=== PATIENT | female | born 1955 | race African-American/Black ===

== ENCOUNTER 2023-01-20 08:43 | Inpatient (IN) | payer MEDICARE, MEDICAID, SELFPAY ==
[2023-01-20] VITALS (9 sets, daily range): BP systolic 141–187; BP diastolic 79–117; PULSE 103–130; RESP 18–24; TEMP 36.1–36.8; O2SAT 2–99; BMI 34.6; BMI 34.5
--- NOTE | ~2023-01-20 | XR_ITS ---
EXAMINATION: XR CHEST 10:35 AM CLINICAL INFORMATION: Shortness of breath COMPARISON: None available. TECHNIQUE: Frontal AP portable view of the chest was obtained. FINDINGS: There are patchy airspace opacities in the mid and lower lung zones bilaterally, right greater than left. There may be a small right pleural effusion. The cardiac silhouette is magnified by the AP position. XR/XR chest 1V IMPRESSION: Bilateral airspace opacities in the mid and lower lung zones compatible with pneumonia. Viral pneumonia including COVID could have this appearance, as could multifocal bronchopneumonia. Close follow-up imaging is recommended to confirm clearing.
--- NOTE | 2023-01-20 09:05 | ECG_ITS ---
Test Reason : sob Blood Pressure : / mmHG Vent. Rate : 121 BPM Atrial Rate : 121 BPM P-R Int : 160 ms QRS Dur : 088 ms QT Int : 324 ms P-R-T Axes : 047 017 090 degrees QTc Int : 460 ms Sinus tachycardia Intra-ventricular conduction delay with occasional Premature ventricular complexes Nonspecific T wave abnormality Abnormal ECG No previous ECGs available Referred By: Generic ED Physician Electronically Signed By:JOSSELYN GARCIA MD
[2023-01-20 09:09] LABS: MANUAL DIFF FLAG NO
[2023-01-20 09:12] LABS: Basophils Percent Auto 0.3 % (0-2); Eosinophils Percent Auto 0.5 % (0-4); Hematocrit 41.9 % (37.0-47.0); Hemoglobin 13.1 g/dl (12.0-16.0); Imm Gran Abs Auto 0.05 X10*3/uL (0.00-0.03); Imm Gran Pct Auto 0.6 % (0.0-0.4); Lymphocytes Absolute Auto 1.7 X10*3/uL (1.2-4.9); Lymphocytes Percent Auto 21.6 % (20-40); Mean Corpuscular HGB Conc 31.3 g/dl (31.0-35.0); Mean Corpuscular Hemoglobin 29.4 pg (27.0-33.0); Mean Corpuscular Volume 94.2 fL (80.0-98.0); Mean Platelet Volume 11.3 fL (9.4-12.3); Monocytes Absolute Auto 0.4 X10*3/uL (0.1-1.2); Monocytes Percent Auto 5.2 % (2-11); Neutrophils Absolute Auto 5.7 x10*3/uL (2.0-8.3); Neutrophils Percent Auto 71.8 % (45-73); Platelet Count 241 X10*3/uL (160-400); Red Blood Count 4.45 X10*6/uL (4.20-5.50); Red Cell Distribution Width 13.6 % (11.0-16.0); White Blood Count 7.9 X10*3/uL (4.8-10.8)
[2023-01-20 09:28] LABS: Alanine Aminotransferase 100 U/L (0-31); Albumin Level 3.8 g/dL (3.5-5.0); Alkaline Phosphatase 131 U/L (39-117); Anion Gap 13 (12-20); Aspartate Amino Transferase 61 U/L (5-31); Bilirubin Total 0.8 mg/dL (0.0-1.0); Blood Urea Nitrogen 19 mg/dL (9-16); Calcium 9.2 mg/dL (8.4-10.2); Carbon Dioxide 30 mmol/L (22-29); Chloride 100 mmol/L (96-108); Creatinine Clr Calc Pharmacy 67.2; Estimated Glomerular Filt Rate 58; Glucose Random 311 mg/dL (60-115); Potassium 4.2 mmol/L (3.3-5.1); Sodium 139 mmol/L (135-145); Total Protein 7.2 g/dL (6.5-8.0)
--- NOTE | 2023-01-20 10:06 | ED_ITS ---
HPI - General Adult General Chief complaint: Upper Respiratory Symptoms Stated complaint: SOB X'S 1O MINUTES,HIGH BP 177/110 PER EMS Time Seen by Provider: 01/20/23 10:05 Source: patient and EMS Mode of arrival: EMS Limitations: no limitations History of Present Illness HPI narrative: Patient is a 67 year old assigned female at with a history of COPD presenting to the emergency department today with increased shortness of breath and a feeling of squeezing in the chest. 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 Patient states that she used a breathing treatment and felt somewhat better. Patient denies any dizziness, lightheadedness, abdominal pain, nausea, vomiting, fever, chills, blurry vision, double vision, loss of vision, back pain, night sweats, pain with urination, increased urinary frequency, increased urinary urgency, blood in her urine or stool, syncope or a near syncopal episode, recent trauma or falls, bowel incontinence, bladder incontinence, bowel retention, bladder retention, or any other complaints at this time. Onset (ago): minute(s) Severity: mild Severity scale (1-10): 3 Relieving factors: none Exacerbating factors: none Associated symptoms: chest pain and shortness of breath Treatments prior to arrival: other (breathing treatment) Related Data Allergies Allergy/AdvReac Type Severity Reaction Status Date / Time amlodipine Allergy Unknown Verified 01/20/23 10:16 Latex, Natural Rubber Allergy Unknown Verified 01/20/23 10:16 Review of Systems 2 Constitutional: Constitutional: Reports no additional constitutional complaints, Denies chills, Denies fever(s) and Denies night sweats Eyes: Eyes: Reports no additional eye complaints, Denies blurry vision, Denies change in vision, Denies diplopia, Denies eye discharge, Denies loss of vision and Denies eye pain ENT: Denies dizziness Cardiovascular: Cardiovascular: Reports no additional cardiovascular complaints, Reports chest pain, Denies lightheadedness, Denies Loss of Consciousness and Reports dyspnea Respiratory: Respiratory: Reports no additional respiratory complaints and Reports dyspnea Gastrointestinal: Gastrointestinal: Reports no additional gastrointestinal complaints, Denies abdominal pain, Denies melena, Denies hematochezia, Denies change in bowel habits and Denies change in stool character Genitourinary: Genitourinary: Denies hematuria, Denies urinary frequency, Denies dysuria, Denies urinary incontinence, Denies urinary hesitancy and Denies urinary urgency Musculoskeletal: Musculoskeletal: Reports no additional musculoskeletal complaints, Denies numbness and Denies tingling Neurologic: Denies dizziness, Denies loss of vision, Denies numbness and Denies tingling Psychiatric: Psychiatric: Reports no additional psychiatric complaints Endocrine: Endocrine: Reports no additional endocrine complaints Hematologic/Lymphatic: Hematologic/Lymphatic: Reports no additional hematologic/lymphatic complaints Allergic/Immunologic: Allergic/Immunologic: Reports no additional allergic/immunologic complaints PMFSH Past Medical History Attestation statement: The following information was validated with the patient. (patient's daughter validated all information) Source: old records reviewed, obtained from family (patient's daughter provided additional history and confirmed the history provided by the patient and EMS) and nursing notes reviewed Social History Social History Advance Directives: No Advance Directives Information Provided: Yes Physical Exam ED Vital Signs: Vital Signs - 24 hr 01/20/23 08:51 01/20/23 10:23 Temperature 98 F Pulse Rate 124 H 116 H Respiratory Rate 20 18 Blood Pressure 141/85 H Pulse Oximetry 98 Oxygen Delivery Method Aerosol Mask BMI result Body Mass Index 34.6 Const General: cooperative, no acute distress, alert and awake Nutritional Appearance: well nourished Orientation/consciousness: patient oriented x3 Limitations: no limitations HENMT Head: Yes normal to inspection and Yes atraumatic Ears: hearing grossly normal bilaterally and external ears normal General nose exam: Normal external nose present, no nasal discharge noted and no epistaxis Face and sinus: Yes normal facial exam, No abrasion and No laceration Mouth: Normal oral and palatal mucosa present, no drooling and no muffled voice Eyes General: appearance normal, both eyes and all related structures Periorbital: periorbital findings normal Eyelids: Yes eyelids normal Conjunctivae: conjunctivae normal Pupils: Equal, round and reactive pupils present EOM: EOMs intact bilaterally Neck Neck: Yes normal visual inspection, Yes full ROM and Yes no lymphadenopathy Chest Chest palpation & inspection: normal inspection of the chest Resp Effort & Inspection: able to speak in complete sentences and labored Auscultation: wheezes throughout and diminished lung sounds diffuse Cardio Rate: tachycardic Rhythm: regular rhythm GI Inspection: Yes normal to inspection Palpation (GI): Soft to palpation, not firm, nontender and no guarding Neuro General: patient oriented x3 and moves all extremities Cranial nerves: Yes Equal, round and reactive pupils present Cognition (Neuro): normal cognition Motor exam (neuro): 5/5 motor strength present throughout Sensory Exam: Normal double simultaneous stimulation for sensation Coordination: [id number] test normal Extrem General: Yes normal to inspection, Yes full ROM and Yes capillary refill normal Psych Appearance: grossly normal Mental Status: mental status grossly normal Affect: normal affect Attitude: cooperative Thought process: Normal thought process present Thought content: Normal thought content present Insight: Good insight present (Psych) Medications Administered Discontinued Medications Generic Name Dose Route Start Last Admin Trade Name Freq PRN Reason Stop Dose Admin Albuterol Sulfate 2.5 mg/ 0 mg 01/20/23 10:14 01/20/23 10:23 Albuterol/Ipratropium 3 ml INHALE 01/20/23 10:15 1 dose ONCE ONE Administration Magnesium Sulfate 2 gm in 50 mls @ 25 mls/hr 01/20/23 10:07 01/20/23 12:01 Magnesium Sulfate/H2o IV 01/20/23 12:06 Infused ONCE ONE Infusion Ceftriaxone Sodium 2 gm/ 50 mls @ 100 mls/hr 01/20/23 12:16 01/20/23 12:54 Sodium Chloride IV 01/20/23 12:45 100 mls/hr ONCE ONE Administration Methylprednisolone Sodium Succinate 60 mg 01/20/23 10:07 01/20/23 10:19 Methylprednisolone Sod Succ 125 Mg/2 Ml Vial IVPUSH 01/20/23 10:08 60 mg ONCE ONE Administration Medical Decision Making Medical Decision Making [facility] Narrative: Patient is a 67 year old assigned female at with a history of newly diagnosed COPD and COVID-19 earlier in the month presenting to the emergency department today with shortness of breath. Patient's physical exam was as noted in the physical exam portion of this note. Patient's blood work showed an elevated AST of 61, ALT of 100, alk phos of 131, and an initial trop of 27. Patient's repeat troponin is pending at this time. Patient's EKG showed tachycardia. Patient's chest x-ray showed bilateral airspace opacities in the mid and lower lung zones consistent with pneumonia. Patient desaturated down to 77% while ambulating. Patient up to 95% on 2liters of oxygen via nasal cannula. Patient's clinical presentation is consistent with penumonia. Patient's clinical presentation is not consistent with Sepsis (@1220). I spoke to the hospitalist who agreed to admission. I explained my physical exam findings as well as all test results to the patient and the patient's daughter. I answered all questions asked by the patient and the patient's daughter. Patient received solu-medrol, breathing treatments, and magnesium which she stated helped her symptoms significantly. Patient and the patient's daughter verbalized agreement and understanding with this treatment plan and admission. Differential Diagnosis Differential Diagnoses: The differential diagnosis associated with the presentation includes COPD Pneumonia URI COVID-19 Influenza RSV Admission/Observation Consideration of admission/observation: Escalation of care including admission/observation considered Patient to be admitted. Consult Healthcare Provider Management of the patient was discussed with: Hospitalist (agreed to admission) Lab Data MDM Lab Attestation statement: I reviewed the patient's lab results. My interpretation of these results are in the MDM Rationale portion of this note. 01/20/23 09:06 01/20/23 09:06 Labs: Lab Results 01/20/23 01/20/23 Range/Units 09:06 10:21 WBC 7.9 (4.8-10.8) X10*3/uL RBC 4.45 (4.20-5.50) X10*6/uL Hgb 13.1 (12.0-16.0) g/dl Hct 41.9 (37.0-47.0) % MCV 94.2 (80.0-98.0) fL MCH 29.4 (27.0-33.0) pg MCHC 31.3 (31.0-35.0) g/dl RDW 13.6 (11.0-16.0) % Plt Count 241 (160-400) X10*3/uL MPV 11.3 (9.4-12.3) fL Immature Gran % (Auto) 0.6 H (0.0-0.4) % Neut % (Auto) 71.8 (45-73) % Lymph % (Auto) 21.6 (20-40) % [place] % (Auto) 5.2 (2-11) % Eos % (Auto) 0.5 (0-4) % Baso % (Auto) 0.3 (0-2) % Lymph # (Auto) 1.7 (1.2-4.9) X10*3/uL [place] # (Auto) 0.4 (0.1-1.2) X10*3/uL Eos # (Auto) 0.0 (0.0-0.4) X10*3/uL Baso # (Auto) 0.0 (0.0-0.2) X10*3/uL Abs Immat Gran (auto) 0.05 H (0.00-0.03) X10*3/uL Absolute Neuts (auto) 5.7 (2.0-8.3) x10*3/uL Absolute Nucleated RBC 0.000 (0.0-0.012) X10*3/uL Nucleated RBC % (auto) 0.0 (0.0-0.2) /100WBC Sodium 139 (135-145) mmol/L Potassium 4.2 (3.3-5.1) mmol/L Chloride 100 (96-108) mmol/L Carbon Dioxide 30 H (22-29) mmol/L Anion Gap 13 (12-20) BUN 19 H (9-16) mg/dL Creatinine 0.96 (0.5-1.4) mg/dL Estim Creat Clear Calc 67.2 Estimated GFR 58 Random Glucose 311 H (60-115) mg/dL Calcium 9.2 (8.4-10.2) mg/dL Total Bilirubin 0.8 (0.0-1.0) mg/dL AST 61 H (5-31) U/L ALT 100 H (0-31) U/L Alkaline Phosphatase 131 H (39-117) U/L Troponin I High Sens 27.0 H (<3.5-17.0) ng/L Total Protein 7.2 (6.5-8.0) g/dL Albumin 3.8 (3.5-5.0) g/dL Influenza Type A (PCR) NEGATIVE (Negative) Influenza Type B (PCR) NEGATIVE (Negative) RSV RNA Qual (PCR) NEGATIVE (Negative) SARS-CoV-2 RNA (RT-PCR) NEGATIVE (Negative) Independent Interpretation I performed an independent interpretation of an: EKG and Plain X-Ray Interpretation: My interpretation is in agreement with the radiologist's impression of this imaging study. - EXAMINATION: XR CHEST 10:35 AM CLINICAL INFORMATION: Shortness of breath COMPARISON: None available. TECHNIQUE: Frontal AP portable view of the chest was obtained. FINDINGS: There are patchy airspace opacities in the mid and lower lung zones bilaterally, right greater than left. There may be a small right pleural effusion. The cardiac silhouette is magnified by the AP position. XR/XR chest 1V IMPRESSION: Bilateral airspace opacities in the mid and lower lung zones compatible with pneumonia. Viral pneumonia including COVID could have this appearance, as could multifocal bronchopneumonia. Close follow-up imaging is recommended to confirm clearing. Dictated By: Gilmar Teran MD Signed By: Electronically signed by Gilmar Teran MD 01/20/23 1212 - Vent. Rate: 121 BPM Atrial Rate: 121 BPM P-R Int: 160 ms QRS Dur: 088 ms QT Int: 324 ms P-R-T Axes: 047 017 090 degrees QTc Int: 460 ms Sinus tachycardia Intra-ventricular conduction delay with occasional Premature ventricular complexes Nonspecific T wave abnormality Abnormal ECG No previous ECGs available Electronically Signed By:JOSSELYN GARCIA MD Dictated By: Justo Garcia MD Signed By: Electronically signed by Justo Garcia MD 01/20/23 1015 Radiology Impression Discussion of test interpretation with radiology: I have reviewed the radiologist's reading. Independent Historian Clinical information obtained from an independent historian. History obtained from or confirmed by: EMS (EMS provided additional history and confirmed the history provided by the patient.) and Other (patient's daughter provided additional history and confirmed the history provided by the patient.) Critical Care Time Critical Care Time Critical Care Time: Yes Total Critical Care Time: 65 Attestation: I spent 65 minutes of Critical Care Time with this patient. This does not include time spent on separately reported billable procedures. Discharge Plan Discharge Clinical Impression: Pneumonia, COPD (chronic obstructive pulmonary disease) Patient Disposition: Admitted As Inpatient
[2023-01-20] MEDS: Magnesium Sulfate/H2O 2 GM/50 ML PIGGYBACK IV (10:18)
[2023-01-20] MEDS: methylPREDNISolone Sod Succ 125 MG/2 ML VIAL 60 MG IVPUSH (10:19)
[2023-01-20] MEDS: Albuterol Sulfate 2.5 MG, Albuterol/Iprat 2.5/0.5MG 3 ML 3 ML INHALE (10:23)
--- NOTE | 2023-01-20 11:04 | PC.NURSE ---
patient ambulated to bathroom, became short of breath, patient desat down to 78% on room air. brought back to room and placed on 3l NC, patient now sating 94-95% on 3lnc
[2023-01-20 11:12] LABS: Influenza A PCR NEGATIVE (Negative); Influenza B PCR NEGATIVE (Negative); Resp Syncy Virus RNA Qual PCR NEGATIVE (Negative); SARS COV2 PCR INHOUSE NEGATIVE (Negative)
[2023-01-20] MEDS: cefTRIAXone sodium 2 GM in 0.9 % Sodium Chloride 50 ML IV (12:54)
[2023-01-20 13:15] LABS: Lactic Acid 2.5 mmol/L (0.5-2.0)
[2023-01-20 13:20] LABS: Troponin-I High Sensitivity 28.7 ng/L (<3.5-17.0)
--- NOTE | 2023-01-20 14:10 | PHA.MEDREC ---
Pharmacy Consult ? Medication Reconciliation Pharmacy has completed the medication reconciliation through claims hx and patient. Patient confirmed all meds, also stated that she does not take megestrol because she does not have a diagnosis of breast cancer but said she has a history of breast cancer. Pt also stated that she does not take hydrochlorothiazide daily, instead takes it every other day because she takes another medication that makes her urinate frequently. Patient added that she takes aspirin 81 mg daily and iron daily, but does not take her vitamin D. She had her prednisone bottle with her, directions were 1 tablet BID but patient stated she takes 2 tablets once daily.
[2023-01-20 14:50] LABS: Reflex Lactate? Lactic Acid Added
--- NOTE | 2023-01-20 15:11 | PM.IMHP ---
History of Present Illness Date of Service: 01/20/23 Attending physician on admission: Chriss Acharya Chief Complaint: SOB Pt is a 67-year-old female with a PMH significant for HTN, HLD, CAD, left breast cancer 2004, [id number] diabetes type 2,?and new diagnosis of COPD and COVID on 12/23/2022 who presents to the ED with?increasing SOB. Patient initially presented on 04/12/2022 to [facility] due to shortness of breath and difficulty breathing. Was diagnosed there with COPD based off of symptoms and imaging, and also tested positive for COVID. Patient has a history of smoking though quit 20 years ago. Was discharged home prednisone and albuterol inhaler. States inhaler did not help much with her breathing, but she did use her daughter's nebulizer to good effect. Discussed her diagnosis with PCP over the phone who prescribed her a home nebulizer though was unable to diamond picker last night. 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 Called EMS and was brought to the ED for further evaluation. Chronic cough around baseline but lately occasionally productive of whitish foam . GIVENS, especially with walking up the stairs, around baseline. Has had lower leg edema for the past few years. Denies chest pain/pressure, palpitations. No fever, chills, N/V. Denies abdominal pain. In the ED pt was afebrile but tachycardic up to 124, tachypneic 22, hypertensive to 166/102, and desatting as low as 77% on RA while ambulating. Labs were significant for lactic acid of 2.5, AST 61, ALT 100, alk-phos 131, and initial troponin 27.0 with repeat flat at 28.7. No leukocytosis. Negative for influenza type a and B, RSV, COVID. CXR showed bilateral air space opacities in lower lung zones compatible with pneumonia, though viral pneumonia including COVID and multifocal bronchopneumonia could also have this appearance. Suggest close follow-up imaging. EKG demonstrated sinus tachycardia of 121 with intraventricular conduction delay with occasional PVCs, and no evidence of significant ST elevations or depressions. Pt was treated with Mag sulfate, Solu-Medrol, DuoNebs, and ceftriaxone. Pt will be admitted to the hospital for acute hypoxic respiratory failure in the setting of COPD exacerbation likely secondary to viral pneumonia. Review of Systems Review of Systems: Increased shortness of breath, GIVENS Chest tightness Productive cough Chronic GIVENS, around baseline Chronic lower leg edema [facility], [facility]1983 Medical History (Updated 01/20/23 @ 19:13 by DALTON Berg) Breast cancer, left Non-insulin dependent type 2 diabetes mellitus CAD (coronary artery disease) HTN (hypertension) Social History Advance Directives: No Advance Directives Information Provided: Yes Meds Allergies Allergy/AdvReac Type Severity Reaction Status Date / Time amlodipine Allergy Unknown Verified 01/20/23 10:16 Latex, Natural Rubber Allergy Unknown Verified 01/20/23 10:16 Home Medications Medication Instructions Recorded Confirmed Last Taken Type albuterol sulfate 90 mcg/actuation 1 puff inhalation Q4H PRN dyspnea 01/20/23 01/20/23 Unknown History aerosol inhaler (Ventolin HFA) aspirin 81 mg tablet,delayed 81 mg PO DAILY 01/20/23 01/20/23 01/19/23 History release dapagliflozin propanediol 5 mg 5 mg PO DAILY 01/20/23 01/20/23 01/19/23 History tablet (Farxiga) diltiazem HCl 120 mg 120 mg PO DAILY 01/20/23 01/20/23 01/19/23 History capsule,extended release 24 hr dulaglutide 1.5 mg/0.5 mL 1.5 mg subcut QWEEK 01/20/23 01/20/23 01/16/23 History subcutaneous pen injector (Trulicity) gabapentin 600 mg tablet 600 mg PO TID PRN Pain 01/20/23 01/20/23 Unknown History hydrochlorothiazide 25 mg tablet 25 mg PO Q48H 01/20/23 01/20/23 Unknown History prednisone 20 mg tablet 40 mg PO DAILY 01/20/23 01/20/23 01/19/23 History rosuvastatin 10 mg tablet 10 mg PO DAILY 01/20/23 01/20/23 01/19/23 History Physical Exam Vital Signs and Narrative: Vital Signs: Last Vital Signs Temp 98.0 F 01/20/23 14:47 Pulse 103 H 01/20/23 14:47 Resp 22 H 01/20/23 14:47 BP 166/104 H 01/20/23 14:47 Pulse Ox 99 01/20/23 14:47 O2 Del Method Nasal Cannula 01/20/23 14:47 O2 Flow Rate 3 01/20/23 14:47 BMI result Body Mass Index 34.6 Constitutional: Alert, in no acute distress. Mental Status: Oriented to person, place and time. Eyes: Pupils are equal, round, and reactive to light. Ear, Nose, and Throat: Oropharynx clear, mucous membranes moist. Ears and nose without deformities. Trachea midline. Respiratory: Clear to auscultation bilaterally though diminished. No wheezing, rales, or rhonchi noted. Cardiovascular: S1, S2, tachy. No murmurs, rubs, or gallops. Gastrointestinal: Abdomen soft, non-tender, non-distended. Normal bowel sounds. Neurologic: Cranial nerves II-XII are grossly intact bilaterally. No focal neurological deficits. Moves all extremities spontaneously. Skin: Warm, dry. Musculoskeletal: No cyanosis or clubbing. Extremities: 2+ bilateral pitting edema. Psychiatric: Normal mood and affect. Results Labs 01/20/23 09:06 01/20/23 09:06 Labs: Laboratory Results - last 24 hr 01/20/23 01/20/23 01/20/23 09:06 10:21 12:44 MCV 94.2 MCH 29.4 MCHC 31.3 RDW 13.6 Plt Count 241 MPV 11.3 Immature Gran % (Auto) 0.6 H Neut % (Auto) 71.8 Lymph % (Auto) 21.6 [place] % (Auto) 5.2 Eos % (Auto) 0.5 Baso % (Auto) 0.3 Lymph # (Auto) 1.7 [place] # (Auto) 0.4 Eos # (Auto) 0.0 Baso # (Auto) 0.0 Abs Immat Gran (auto) 0.05 H Absolute Neuts (auto) 5.7 Absolute Nucleated RBC 0.000 Nucleated RBC % (auto) 0.0 Anion Gap 13 Estim Creat Clear Calc 67.2 Estimated GFR 58 Random Glucose 311 H Lactic Acid 2.5 H* Calcium 9.2 Total Bilirubin 0.8 AST 61 H ALT 100 H Alkaline Phosphatase 131 H Total Protein 7.2 Albumin 3.8 Influenza Type A (PCR) NEGATIVE Influenza Type B (PCR) NEGATIVE RSV RNA Qual (PCR) NEGATIVE SARS-CoV-2 RNA (RT-PCR) NEGATIVE Imaging Radiologist's Impressions: Impressions Chest X-Ray 01/20/23 10:46 IMPRESSION: Bilateral airspace opacities in the mid and lower lung zones compatible with pneumonia. Viral pneumonia including COVID could have this appearance, as could multifocal bronchopneumonia. Close follow-up imaging is recommended to confirm clearing. Assessment and Plan (1) COPD exacerbation: Status: Acute Plan Pt is a 67-year-old female with a PMH significant for HTN, HLD, CAD, left breast cancer 2004, [id number] diabetes type 2,?and new diagnosis of COPD and COVID on 12/23/2022 who presents to the ED with?increasing SOB. Pt will be admitted to the hospital for acute hypoxic respiratory failure in the setting of COPD exacerbation likely secondary to viral pneumonia. Acute hypoxic respiratory failure in the setting of acute COPD exacerbation Patient with increased SOB, desatting to 77% during ambulation Pt does not meet sepsis criteria: tachycardia, tachypnea, and lactic acid secondary to albuterol use, not severe sepsis Will treat with Duonebs, Solu-Medrol Titrate supplemental O2 >92, wean as tolerated Question of pneumonia CXR with evidence of bilateral airspace opacities in the mid and lower lung zones compatible with pneumonia, however viral pneumonia including COVID could also have this appearance Pt afebrile, no leukocytosis Procalcitonin negative at 0.08 Will hold on additional antibiotics at this time Will check respiratory panel Lactic acidosis Initial lactic acid 2.5 with repeat 2.5 Likely secondary to albuterol use, not severe sepsis Elevated troponins Initial troponin 27.0 with repeat flat at 28.7 EKG without significant ischemic changes Patient asymptomatic: Denies chest pain/pressure, palpitations Likely type 2 in the setting of demand ischemia, hypoxia Lower leg edema Patient states she has been experiencing LLE for the past few years; 2+ pitting edema on exam History of CAD but none for CHF CXR with possible right pleural effusion Continue home hydrochlorothiazide BNP elevated at 605 Will get echocardiogram Transaminitis AST 61, ALT 100, alk-phos 131 Unclear etiology: No GI symptoms, no abdominal pain, no history of drinking, no hep C risk factors, no hepatic toxic medications Will repeat CMP tomorrow Non insulin-dependent type [address] on sliding scale insulin Diabetic diet CAD/HLD Continue aspirin Will hold statin for now d/t transaminitis HTN Continue home meds Full Code Attending:?Dr. Acharya DVT Prophylaxis: Lovenox Pt will require a hospitalization of at least two nights for treatment of?acute hypoxic respiratory failure in the setting of pneumonia and COPD exacerbation. Patient will be treated with IV antibiotics, IV steroids, and breathing treatments. Quality Stroke Does the patient have a stroke diagnosis?: No VTE Prior VTE?: No VTE Risk Level:: Medical - moderate - high VTE Device Contraindication: Treatment Not Indicated VTE Drug Contraindication: N/A - Med Ordered
[2023-01-20 16:35] LABS: ~Lactic Acid-LAB USE ONLY 2.5 mmol/L (0.5-2.0)
[2023-01-20 16:51] LABS: Procalcitonin 0.08 ng/mL
[2023-01-20 17:17] LABS: B Type Natriuretic Peptide 605 pg/mL (<100)
[2023-01-20] MEDS: 0.9 % Sodium Chloride 250 ML 999 ML IV (17:25)
[2023-01-20] MEDS: Azithromycin 500 MG in 0.9 % Sodium Chloride 250 ML 125 MG IV (17:25)
[2023-01-20] MEDS: Aspirin Enteric Coated 81 MG TABLET.DR PO (18:03)
[2023-01-20] MEDS: hydroCHLOROthiazide 25 MG TABLET PO (18:03)
[2023-01-20] MEDS: dilTIAZem HCL CD 120 MG CAP.ER.DEG PO (18:03)
[2023-01-20 18:04] LABS: Reflex Lactate? 2 Y
[2023-01-20 18:34] LABS: Glucose, Whole Blood 389 mg/dL (60-115)
[2023-01-20 19:04] LABS: Cancel Lactic Acid Canceled
--- NOTE | 2023-01-20 19:19 | PC.NURSE ---
patient was stating her IV site was causing discomfort, patient iv line assesed, flushing and patent. no redness, swelling or leakage. patient iv infusion restarted per MAR
[2023-01-20] MEDS: Albuterol/Iprat 2.5/0.5MG 3 ML AMPUL.NEB INHALE (19:55)
--- NOTE | 2023-01-20 20:19 | PC.NURSE ---
IV infiltrated, abx moved to other IV site, positional but able to finish. arm no longer in pain. family at bedside, pt using bedside commode.
[2023-01-20 21:22] LABS: Glucose, Whole Blood 439 mg/dL (60-115)
[2023-01-20] MEDS: methylPREDNISolone Sod Succ 40 MG/ML VIAL IVPUSH (21:51)
[2023-01-20] MEDS: Insulin Glargine,Hum.rec.anlog 100 UNIT/ML 10 ML VIAL 15 UNIT SUBCUT (21:51)
[2023-01-20] MEDS: Insulin Lispro 100 UNIT/ML 3 ML VIAL SUBCUT ×2 (21:52)
[2023-01-20] MEDS: 0.9 % Sodium Chloride Flush 3 ML SYRINGE IVFLUSH (21:53)
[2023-01-20] MEDS: Gabapentin 600 MG TABLET PO (21:55)
[2023-01-20] MEDS: Docusate Sodium 100 MG CAPSULE PO (22:07)
[2023-01-20] MEDS: Sennosides 8.6 MG TABLET 17.2 MG PO (22:07)
[2023-01-21] VITALS (8 sets, daily range): BP systolic 136–158; BP diastolic 74–92; PULSE 84–104; RESP 18–20; TEMP 36–37.1; O2SAT 95–98
[2023-01-21] MEDS: Furosemide 20 MG/2 ML VIAL IVPUSH (06:05)
--- NOTE | 2023-01-21 07:00 | CA_ITS ---
Transthoracic Echocardiogram Patient (Last, First, Middle): Audrey Ambriz, Gender: Female Date of : 1955 Age: 67 Procedure Date: 01/21/2023 Procedure Type: Transthoracic Echocardiogram Location: [facility] – [place] Height: 170.18 cm Weight: 99.79 kg BSA: 2.11 m2 Heart Rate: 113 bpm BP: 136 / 91 mmHg Roll Over Loader: WAYNE Aldana MD: Kalani HOFFMAN Photo Colorer: Sae Chapman MD Symptoms: SOB, LLE, elevated BNP, ?CHF Study Quality: Fair/w Contrast ECG Rhythm: Tachycardia Conclusions: - 1. Mildly dilated left ventricle with mild LVH with LVEF of 60 65% with grade 2 diastolic dysfunction 2. Moderate mitral regurgitation 3. Normal RV systolic pressure 4. No gross pericardial effusion Findings Procedure Information Contrast agent, definity, is being given per protocol without apparent complications. Left Ventricle Mildly increased left ventricular cavity size. There is mildly increased left ventricular wall thickness. The left ventricular systolic function is normal. The visually estimated ejection fraction is between 60-65%. Spectral Doppler is indicative of a pseudonormal filling pattern. Elevated filling pressures. E/E prime ratio is >15, consistent with elevated filling pressures. Evidence suggests grade II (moderate) diastolic dysfunction. Right Ventricle The right ventricle was not well visualized. Atria The left atrium was not well visualized. Interatrial shunt cannot be excluded. The right atrium was not well visualized. Aortic Valve The aortic valve was not well visualized. There is mild calcification of the aortic valve. There is no aortic valve stenosis. There is no aortic valve regurgitation. Mitral Valve The mitral valve was not well visualized. There is mild anterior mitral leaflet thickening. There is moderate mitral annular calcification. There is moderate mitral valve regurgitation. There is no mitral valve stenosis. Pulmonic Valve The pulmonic valve was not well visualized. Tricuspid Valve Likely normal tricuspid valve structure and function. There is trace tricuspid valve regurgitation. The right ventricular systolic pressure is normal. The right ventricular systolic pressure is 27 mmHg. Normal right atrial pressure. There is no evidence of pulmonary hypertension. Great Vessels The pulmonary artery was not well visualized. Venous The inferior vena cava is normal in size and collapses greater than 50% with inspiration. Pericardium/Pleural There is no evidence of pericardial effusion. Prior Study Comparison No prior study available for comparison. Measurements 2D Linear Measurements IVSd: 1.23 0.6-0.9/0.6-1.0 cm LVIDd: 5.83 3.9-5.3/4.2-5.9 cm LVIDd Index: 2.76 2.4-3.2/2.2-3.1 cm/m2 LVIDs: 3.98 2.0-3.6 cm LVPWd: 1.20 0.7-1.1 cm LA Diam: 4.00 2.7-3.8/3.0-4.0 cm LAIDs Index: 1.90 1.5-2.3 cm/m2 LV Mass: 380.02 67-162/88-224 g LV Mass Index: 180.10 43-95/49-115 g/m2 LVOT Diam: 1.90 3.0+(-)1.3 cm 2D Systolic Function EF 4C: 48.50 >55% EF 2C: 63.40 >55% Mitral Valve MV Pk E: 1.73 MV PK A: 1.56 MV Decel Time: 182.00 E/A: 1.10 E'Lateral: 6.74 E'Medial: 7.72 E/E' Med: 22.40 E/E' Lat: 25.70 PHT: 53.00 MVA PHT: 4.15 Decel [place]: 9.51 MR Vol - PW Dopp: 37.49 MR VTI: 1.63 MR ERO: 23.00 MR Alias Lencho: 0.39 MR RAD: 0.80 Aortic Valve AoV Pk Lencho: 1.44 AoV Mn Lencho: 1.04 AoV VTI: 0.24 AoV Pk Grad: 8.00 Aov Mn Grad: 5.00 FABIOLA Cont.VTI: 2.24 LVOT LVOT Pk Lencho: 1.18 LVOT Mn Lencho: 0.80 LVOT VTI: 0.19 LVOT Pk Grad: 6.00 LVOT Mn Grad: 3.00 LVOT Diam: 1.90 LVOT Area: 2.84 Diastolic Function MV Pk E: 1.73 MV Pk A: 1.56 E/A: 1.10 E'Medial: 7.72 E/E' Med: 22.40 E' Laterial: 6.74 E/E' Lat: 25.70 Right Ventricle TAPSE (mm): 15.70 TVS' Lencho: 9.68 Tricuspid Valve TR Pk Lencho: 2.45 TR Pk Grad: 24.00 RA Press: 3.00 RVSP: 27.00 Great Vessels Aorta Sinus of Valsalva: 3.20 2.0-3.5 cm Ao Asc: 3.40 2.1-3.4 cm Pulmonary Valve PV Pk Lencho: 1.13 Peak PV Grad: 5.00 Updated in Other Vendor System with Status of Final Sae Chapman MD electronically signed on 01/21/2023 1:33:27 PM with status of Final
[2023-01-21 08:07] LABS: Glucose, Whole Blood 256 mg/dL (60-115)
[2023-01-21] MEDS: dilTIAZem HCL CD 120 MG CAP.ER.DEG PO (08:16)
[2023-01-21] MEDS: methylPREDNISolone Sod Succ 40 MG/ML VIAL IVPUSH ×2 (08:16→20:58)
[2023-01-21] MEDS: Aspirin Enteric Coated 81 MG TABLET.DR PO (08:16)
[2023-01-21] MEDS: Insulin Lispro 100 UNIT/ML 3 ML VIAL SUBCUT ×5 (08:16→20:58)
[2023-01-21] MEDS: 0.9 % Sodium Chloride Flush 3 ML SYRINGE IVFLUSH ×3 (08:17→20:59)
[2023-01-21] MEDS: Albuterol/Iprat 2.5/0.5MG 3 ML AMPUL.NEB INHALE ×3 (08:43→20:18)
--- NOTE | 2023-01-21 11:42 | MHC.CM.PN ---
IMM 01/21. 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 Pt is a [employer], pt provided a copy of her HCP. Returning home is the goal, pts daughter will transport her home. PCP: Shanita BOSS
[2023-01-21 11:53] LABS: Glucose, Whole Blood 395 mg/dL (60-115)
[2023-01-21 11:53] LABS: Hematocrit 38.3 % (37.0-47.0); Hemoglobin 12.5 g/dl (12.0-16.0); Mean Corpuscular HGB Conc 32.6 g/dl (31.0-35.0); Mean Corpuscular Hemoglobin 30.6 pg (27.0-33.0); Mean Corpuscular Volume 93.6 fL (80.0-98.0); Mean Platelet Volume 12.6 fL (9.4-12.3); Platelet Count 192 X10*3/uL (160-400); Red Blood Count 4.09 X10*6/uL (4.20-5.50); Red Cell Distribution Width 13.9 % (11.0-16.0); White Blood Count 9.9 X10*3/uL (4.8-10.8)
[2023-01-21 12:08] LABS: Alanine Aminotransferase 72 U/L (0-31); Albumin Level 3.6 g/dL (3.5-5.0); Alkaline Phosphatase 116 U/L (39-117); Anion Gap 16 (12-20); Aspartate Amino Transferase 22 U/L (5-31); Bilirubin Total 0.6 mg/dL (0.0-1.0); Blood Urea Nitrogen 25 mg/dL (9-16); Calcium 9.1 mg/dL (8.4-10.2); Carbon Dioxide 22 mmol/L (22-29); Chloride 102 mmol/L (96-108); Creatinine Clr Calc Pharmacy 67.1; Estimated Glomerular Filt Rate 58; Glucose Random 462 mg/dL (60-115); Potassium 3.9 mmol/L (3.3-5.1); Sodium 136 mmol/L (135-145); Total Protein 6.8 g/dL (6.5-8.0)
--- NOTE | 2023-01-21 14:07 | HO.PM.IMPN ---
Subjective Subjective Date of Service: 01/21/23 Interval History: States breathing improved minimally since admit. No acute issues overnight Review of Systems Denies chest pain Admits to shortness of breath Denies nausea vomiting diarrhea Denies fever chills Physical Exam Vital Signs: Vital Signs: Last Vital Signs Temp 96.8 F 01/21/23 07:42 Pulse 100 01/21/23 08:44 Resp 20 01/21/23 08:44 BP 140/92 H 01/21/23 07:42 Pulse Ox 98 01/21/23 07:42 O2 Del Method Nasal Cannula 01/21/23 07:42 O2 Flow Rate 2 01/21/23 07:42 Oxygen Flow Rate 2 01/20/23 20:38 BMI result Body Mass Index 34.5 Const: Other: Awake alert oriented x3 no acute distress Resp: Other: Diminished with scant expiratory wheezes at bases Cardio: Other: No S4; positive S1-S2; no S3 murmurs rubs or gallops GI: Other: Soft nontender nondistended normoactive bowel sounds Neuro: Other: Cranial nerves 2-12 grossly intact as tested. Motor is 5/5 all extremities. Sensation intact. Cognition appropriate Extrem: Other: No edema bilaterally Objective Data Active Medications Acetaminophen (Acetaminophen 325 Mg Tablet) 650 mg PO Q6H PRN PRN Reason: Pain, Mild (Pain Scale 1-3) Albuterol Sulfate (Albuterol Sulfate 90 Mcg 8 Gm Inhaler) 1 puff INHALE Q4H PRN PRN Reason: dyspnea Albuterol/Ipratropium (Albuterol/Iprat 2.5/0.5mg 3 Ml Ampul.Neb) 3 ml INHALE RQ4H WHILE AWAKE [facility] Last Admin: 01/21/23 11:52 Dose: Not Given Documented By: YANICK Non-Admin Reason: Pt refused, no distress noted Aspirin (Aspirin Enteric Coated 81 Mg Tablet.) 81 mg PO DAILY [facility] Last Admin: 01/21/23 08:16 Dose: 81 mg Documented By: CHON Benzonatate (Benzonatate 100 Mg Capsule) 100 mg PO TID PRN PRN Reason: Cough Dextrose (Dextrose 50 % 25 Gm/50 Ml Syringe) 25 gm IVPUSH Q15M PRN; Protocol PRN Reason: per Hypoglycemia Standing Ord. Diltiazem HCl (Diltiazem Hcl Cd 120 Mg Cap.Er.Deg) 120 mg PO DAILY [facility]; Protocol Last Admin: 01/21/23 08:16 Dose: 120 mg Documented By: CHON Docusate Sodium (Docusate Sodium 100 Mg Capsule) 100 mg PO DAILY PRN PRN Reason: Constipation Last Admin: 01/20/23 22:07 Dose: 100 mg Documented By: BENIGNO Enoxaparin Sodium (Enoxaparin Sodium 40 Mg/0.4 Ml Syringe) 40 mg SUBCUT Q24H [facility] Last Admin: 01/20/23 18:05 Dose: Not Given Documented By: HAYLEY Non-Admin Reason: Patient Refused Furosemide (Furosemide 20 Mg/2 Ml Vial) 20 mg IVPUSH DAILY [facility]; Protocol Last Admin: 01/21/23 06:05 Dose: 20 mg Documented By: BENIGNO Gabapentin (Gabapentin 600 Mg Tablet) 600 mg PO TID PRN PRN Reason: Pain, Mild (Pain Scale 1-3) Last Admin: 01/20/23 21:55 Dose: 600 mg Documented By: BENIGNO Glucose (Glucose Gel 15 Gm Gel..Gram.) 15 gm PO Q15M PRN; Protocol PRN Reason: per Hypoglycemia Standing Ord. Hydrochlorothiazide (Hydrochlorothiazide 25 Mg Tablet) 25 mg PO Q48H [facility]; Protocol Last Admin: 01/20/23 18:03 Dose: 25 mg Documented By: HAYLEY Insulin Glargine (Insulin Glargine,Hum.Rec.Anlog 100 Unit/Ml 10 Ml Vial) 15 unit SUBCUT BEDTIME [facility] Last Admin: 01/20/23 21:51 Dose: 15 unit Documented By: BENIGNO Insulin Human Lispro (Insulin Lispro 100 Unit/Ml 3 Ml Vial) 0 unit SUBCUT QIDACHS [facility]; Protocol Last Admin: 01/21/23 12:18 Dose: 10 unit Documented By: CHON Melatonin (Melatonin 3 Mg Tablet) 6 mg PO BEDTIME PRN PRN Reason: Insomnia Methylprednisolone Sodium Succinate (Methylprednisolone Sod Succ 40 Mg/Ml Vial) 40 mg IVPUSH Q12H [facility] Last Admin: 01/21/23 08:16 Dose: 40 mg Documented By: CHON Ondansetron HCl (Ondansetron Hcl 4 Mg/2 Ml Vial) 4 mg IVPUSH Q8H PRN PRN Reason: Nausea and Vomiting Senna (Sennosides 8.6 Mg Tablet) 17.2 mg PO BEDTIME [facility] Last Admin: 01/20/23 22:07 Dose: 17.2 mg Documented By: BENIGNO Sodium Chloride (0.9 % Sodium Chloride Flush 3 Ml Syringe) 3 ml IVFLUSH QSHIFT [facility] Last Admin: 01/21/23 08:17 Dose: 3 ml Documented By: CHON Labs 01/21/23 11:26 01/21/23 11:26 Labs: Laboratory Results - last 24 hr 01/20/23 01/20/23 01/20/23 12:44 16:00 16:51 MCV MCH MCHC RDW Plt Count MPV Absolute Nucleated RBC Nucleated RBC % (auto) Anion Gap Estim Creat Clear Calc Estimated GFR POC Glucose Random Glucose Lactic Acid F/U @ 2Hr 2.5 H* Lactic Acid F/U @ 4Hr Calcium Total Bilirubin AST ALT Alkaline Phosphatase B-Natriuretic Peptide 605 H Total Protein Albumin Procalcitonin 0.08 01/20/23 01/20/23 01/20/23 18:29 18:30 21:18 MCV MCH MCHC RDW Plt Count MPV Absolute Nucleated RBC Nucleated RBC % (auto) Anion Gap Estim Creat Clear Calc Estimated GFR POC Glucose 389 H* 439 H* Random Glucose Lactic Acid F/U @ 2Hr Lactic Acid F/U @ 4Hr Cancelled Calcium Total Bilirubin AST ALT Alkaline Phosphatase B-Natriuretic Peptide Total Protein Albumin Procalcitonin 01/21/23 01/21/23 01/21/23 07:40 11:26 11:36 MCV 93.6 MCH 30.6 MCHC 32.6 RDW 13.9 Plt Count 192 MPV 12.6 H Absolute Nucleated RBC 0.000 Nucleated RBC % (auto) 0.0 Anion Gap 16 Estim Creat Clear Calc 67.1 Estimated GFR 58 POC Glucose 256 H 395 H* Random Glucose 462 H* Lactic Acid F/U @ 2Hr Lactic Acid F/U @ 4Hr Calcium 9.1 Total Bilirubin 0.6 AST 22 ALT 72 H Alkaline Phosphatase 116 B-Natriuretic Peptide Total Protein 6.8 Albumin 3.6 Procalcitonin Assessment and Plan (1) COPD exacerbation: Status: Acute (2) Non-insulin dependent type 2 diabetes mellitus: Status: Acute (3) HTN (hypertension): Status: Acute (4) CAD (coronary artery disease): Status: Acute Plan Pt is a 67-year-old female with a PMH significant for HTN, HLD, CAD, left breast cancer 2004, [id number] diabetes type 2,?and new diagnosis of COPD and COVID on 12/23/2022 who presents to the ED with?increasing SOB. Pt will be admitted to the hospital for acute hypoxic respiratory failure in the setting of COPD exacerbation likely secondary to viral pneumonia. 1.Acute hypoxic respiratory failure/acute COPD exacerbation -pulse dose methylprednisolone -DuoNebs q.4 hours while awake -titrate O2 to maintain sats greater than equal 90% 2.Elevated troponins -Initial troponin 27.0 with repeat flat at 28.7 -EKG without significant ischemic changes -likely type 2 in the setting of demand ischemia, hypoxia 3.Trsaminitis -resolving -follow clinically 4.Non insulin-dependent type 2 diabetes mellitus -acceptable control on current therapies -lispro correctional scale -adjust as indicated 5.CAD/HLD -continue aspirin -will hold statin for now; resume when clinically appropriate 6.HTN -acceptable control on current therapies -adjust as indicated Full Code Lovenox Patient require ongoing hospitalization for supplemental O2 and IV methylprednisolone to treat COPD exacerbation Quality Stroke Does the patient have a stroke diagnosis?: No VTE Prior VTE?: No VTE Risk Level:: Medical - moderate - high VTE Device Contraindication: Treatment Not Indicated VTE Drug Contraindication: N/A - Med Ordered
[2023-01-21 16:12] LABS: Glucose, Whole Blood 391 mg/dL (60-115)
[2023-01-21 20:07] LABS: Glucose, Whole Blood 417 mg/dL (60-115)
[2023-01-21] MEDS: Insulin Glargine,Hum.rec.anlog 100 UNIT/ML 10 ML VIAL 15 UNIT SUBCUT (20:58)
[2023-01-22] VITALS (8 sets, daily range): BP systolic 147–186; BP diastolic 78–99; PULSE 100–110; RESP 16–18; TEMP 36–36.5; O2SAT 94–98
[2023-01-22 07:17] LABS: MANUAL DIFF FLAG NO
[2023-01-22 07:19] LABS: Basophils Percent Auto 0.1 % (0-2); Hematocrit 38.6 % (37.0-47.0); Hemoglobin 12.2 g/dl (12.0-16.0); Imm Gran Abs Auto 0.07 X10*3/uL (0.00-0.03); Imm Gran Pct Auto 0.7 % (0.0-0.4); Lymphocytes Absolute Auto 1.2 X10*3/uL (1.2-4.9); Lymphocytes Percent Auto 10.9 % (20-40); Mean Corpuscular HGB Conc 31.6 g/dl (31.0-35.0); Mean Corpuscular Hemoglobin 29.1 pg (27.0-33.0); Mean Corpuscular Volume 92.1 fL (80.0-98.0); Mean Platelet Volume 11.5 fL (9.4-12.3); Monocytes Absolute Auto 0.6 X10*3/uL (0.1-1.2); Monocytes Percent Auto 5.5 % (2-11); Neutrophils Absolute Auto 8.8 x10*3/uL (2.0-8.3); Neutrophils Percent Auto 82.8 % (45-73); Platelet Count 229 X10*3/uL (160-400); Red Blood Count 4.19 X10*6/uL (4.20-5.50); White Blood Count 10.6 X10*3/uL (4.8-10.8)
[2023-01-22 07:37] LABS: Alanine Aminotransferase 58 U/L (0-31); Albumin Level 3.6 g/dL (3.5-5.0); Alkaline Phosphatase 104 U/L (39-117); Anion Gap 13 (12-20); Aspartate Amino Transferase 14 U/L (5-31); Bilirubin Total 0.6 mg/dL (0.0-1.0); Blood Urea Nitrogen 30 mg/dL (9-16); Calcium 9.4 mg/dL (8.4-10.2); Carbon Dioxide 26 mmol/L (22-29); Chloride 101 mmol/L (96-108); Creatinine Clr Calc Pharmacy 63.8; Estimated Glomerular Filt Rate 54; Glucose Random 339 mg/dL (60-115); Potassium 4.3 mmol/L (3.3-5.1); Sodium 136 mmol/L (135-145); Total Protein 6.7 g/dL (6.5-8.0)
[2023-01-22 07:39] LABS: Glucose, Whole Blood 315 mg/dL (60-115)
[2023-01-22] MEDS: 0.9 % Sodium Chloride Flush 3 ML SYRINGE IVFLUSH ×3 (08:04→20:59)
[2023-01-22] MEDS: Aspirin Enteric Coated 81 MG TABLET.DR PO (08:04)
[2023-01-22] MEDS: Furosemide 20 MG/2 ML VIAL IVPUSH (08:05)
[2023-01-22] MEDS: Insulin Lispro 100 UNIT/ML 3 ML VIAL 15 UNIT SUBCUT (08:05)
[2023-01-22] MEDS: dilTIAZem HCL CD 120 MG CAP.ER.DEG PO (08:05)
[2023-01-22] MEDS: methylPREDNISolone Sod Succ 40 MG/ML VIAL IVPUSH ×2 (08:05→20:57)
[2023-01-22] MEDS: Insulin Lispro 100 UNIT/ML 3 ML VIAL SUBCUT ×4 (08:06→20:57)
[2023-01-22] MEDS: Docusate Sodium 100 MG CAPSULE PO (08:13)
[2023-01-22] MEDS: Albuterol/Iprat 2.5/0.5MG 3 ML AMPUL.NEB INHALE ×3 (08:27→20:32)
[2023-01-22 11:26] LABS: Glucose, Whole Blood 377 mg/dL (60-115)
--- NOTE | 2023-01-22 14:02 | P.PNIM_ITS ---
Subjective Subjective Date of Service: 01/22/23 Interval History: States breathing improved minimally since admit. No acute issues overnight Review of Systems Slowly improving; sugars high secondary to steroids Physical Exam 2 Vital Signs: Vital Signs: Last Vital Signs Temp 97.7 F 01/22/23 07:31 Pulse 110 H 01/22/23 11:54 Resp 16 01/22/23 11:54 BP 147/99 H 01/22/23 07:31 Pulse Ox 96 01/22/23 07:31 O2 Del Method Room Air 01/22/23 07:31 O2 Flow Rate 2 01/21/23 07:42 Oxygen Flow Rate 2 01/20/23 20:38 BMI result Body Mass Index 34.5 Const: Other: Awake alert oriented x3 no acute distress Resp: Other: Diminished with scant expiratory wheezes at bases Cardio: Other: No S4; positive S1-S2; no S3 murmurs rubs or gallops GI: Other: Soft nontender nondistended normoactive bowel sounds Neuro: Other: Cranial nerves 2-12 grossly intact as tested. Motor is 5/5 all extremities. Sensation intact. Cognition appropriate Extrem: Other: No edema bilaterally Objective Data Active Medications Acetaminophen (Acetaminophen 325 Mg Tablet) 650 mg PO Q6H PRN PRN Reason: Pain, Mild (Pain Scale 1-3) Albuterol Sulfate (Albuterol Sulfate 90 Mcg 8 Gm Inhaler) 1 puff INHALE Q4H PRN PRN Reason: dyspnea Albuterol/Ipratropium (Albuterol/Iprat 2.5/0.5mg 3 Ml Ampul.Neb) 3 ml INHALE RQ4H WHILE AWAKE [facility] Last Admin: 01/22/23 11:53 Dose: 3 ml Documented By: EMMANUEL Aspirin (Aspirin Enteric Coated 81 Mg Tablet.) 81 mg PO DAILY [facility] Last Admin: 01/22/23 08:04 Dose: 81 mg Documented By: JORDI Benzonatate (Benzonatate 100 Mg Capsule) 100 mg PO TID PRN PRN Reason: Cough Dextrose (Dextrose 50 % 25 Gm/50 Ml Syringe) 25 gm IVPUSH Q15M PRN; Protocol PRN Reason: per Hypoglycemia Standing Ord. Dextrose (Dextrose 50 % 25 Gm/50 Ml Syringe) 25 gm IVPUSH Q15M PRN; Protocol PRN Reason: per Hypoglycemia Standing Ord. Diltiazem HCl (Diltiazem Hcl Cd 120 Mg Cap.Er.Deg) 120 mg PO DAILY [facility]; Protocol Last Admin: 01/22/23 08:05 Dose: 120 mg Documented By: JORDI Docusate Sodium (Docusate Sodium 100 Mg Capsule) 100 mg PO DAILY PRN PRN Reason: Constipation Last Admin: 01/22/23 08:13 Dose: 100 mg Documented By: JORDI Enoxaparin Sodium (Enoxaparin Sodium 40 Mg/0.4 Ml Syringe) 40 mg SUBCUT Q24H [facility] Last Admin: 01/21/23 16:31 Dose: Not Given Documented By: CHON Non-Admin Reason: Patient Refused Furosemide (Furosemide 20 Mg/2 Ml Vial) 20 mg IVPUSH DAILY [facility]; Protocol Last Admin: 01/22/23 08:05 Dose: 20 mg Documented By: JORDI Gabapentin (Gabapentin 600 Mg Tablet) 600 mg PO TID PRN PRN Reason: Pain, Mild (Pain Scale 1-3) Last Admin: 01/20/23 21:55 Dose: 600 mg Documented By: BENIGNO Glucose (Glucose Gel 15 Gm Gel..Gram.) 15 gm PO Q15M PRN; Protocol PRN Reason: per Hypoglycemia Standing Ord. Hydrochlorothiazide (Hydrochlorothiazide 25 Mg Tablet) 25 mg PO Q48H [facility]; Protocol Last Admin: 01/20/23 18:03 Dose: 25 mg Documented By: HAYLEY Insulin Glargine (Insulin Glargine,Hum.Rec.Anlog 100 Unit/Ml 10 Ml Vial) 15 unit SUBCUT BEDTIME [facility] Last Admin: 01/21/23 20:58 Dose: 15 unit Documented By: NENITA Insulin Human Lispro (Insulin Lispro 100 Unit/Ml 3 Ml Vial) 0 unit SUBCUT QIDACHS [facility]; Protocol Last Admin: 01/22/23 12:22 Dose: 10 unit Documented By: JORDI Insulin Human Lispro (Insulin Lispro 100 Unit/Ml 3 Ml Vial) 0 unit SUBCUT QIDACHS [facility]; Protocol Last Admin: 01/22/23 11:27 Dose: Not Given Documented By: JORDI Non-Admin Reason: Duplicate Order Melatonin (Melatonin 3 Mg Tablet) 6 mg PO BEDTIME PRN PRN Reason: Insomnia Methylprednisolone Sodium Succinate (Methylprednisolone Sod Succ 40 Mg/Ml Vial) 40 mg IVPUSH Q12H [facility] Last Admin: 01/22/23 08:05 Dose: 40 mg Documented By: JORDI Ondansetron HCl (Ondansetron Hcl 4 Mg/2 Ml Vial) 4 mg IVPUSH Q8H PRN PRN Reason: Nausea and Vomiting Senna (Sennosides 8.6 Mg Tablet) 17.2 mg PO BEDTIME [facility] Last Admin: 01/21/23 21:30 Dose: Not Given Documented By: NENITA Non-Admin Reason: Patient Refused Sodium Chloride (0.9 % Sodium Chloride Flush 3 Ml Syringe) 3 ml IVFLUSH QSHIFT [facility] Last Admin: 01/22/23 08:04 Dose: 3 ml Documented By: JORDI Labs 01/22/23 06:44 01/22/23 06:44 Labs: Laboratory Results - last 24 hr 01/21/23 01/21/23 01/22/23 16:09 19:49 06:44 MCV 92.1 MCH 29.1 MCHC 31.6 RDW 14.0 Plt Count 229 MPV 11.5 Immature Gran % (Auto) 0.7 H Neut % (Auto) 82.8 H Lymph % (Auto) 10.9 L Garfield % (Auto) 5.5 Eos % (Auto) 0.0 Baso % (Auto) 0.1 Lymph # (Auto) 1.2 Garfield # (Auto) 0.6 Eos # (Auto) 0.0 Baso # (Auto) 0.0 Abs Immat Gran (auto) 0.07 H Absolute Neuts (auto) 8.8 H Absolute Nucleated RBC 0.000 Nucleated RBC % (auto) 0.0 Anion Gap 13 Estim Creat Clear Calc 63.8 Estimated GFR 54 POC Glucose 391 H* 417 H* Random Glucose 339 H Calcium 9.4 Total Bilirubin 0.6 AST 14 ALT 58 H Alkaline Phosphatase 104 Total Protein 6.7 Albumin 3.6 01/22/23 01/22/23 07:35 11:23 MCV MCH MCHC RDW Plt Count MPV Immature Gran % (Auto) Neut % (Auto) Lymph % (Auto) Garfield % (Auto) Eos % (Auto) Baso % (Auto) Lymph # (Auto) Garfield # (Auto) Eos # (Auto) Baso # (Auto) Abs Immat Gran (auto) Absolute Neuts (auto) Absolute Nucleated RBC Nucleated RBC % (auto) Anion Gap Estim Creat Clear Calc Estimated GFR POC Glucose 315 H 377 H* Random Glucose Calcium Total Bilirubin AST ALT Alkaline Phosphatase Total Protein Albumin Microbiology Microbiology Results: Microbiology 01/20/23 12:44 Blood Culture - Preliminary Blood - Venous No growth after 24 hours. 01/20/23 12:44 Blood Culture - Preliminary Blood - Venous No growth after 24 hours. Assessment and Plan (1) COPD exacerbation: Status: Acute (2) Non-insulin dependent type 2 diabetes mellitus: Status: Acute (3) CAD (coronary artery disease): Status: Acute Plan Pt is a 67-year-old female with a PMH significant for HTN, HLD, CAD, left breast cancer 2004, [id number] diabetes type 2,?and new diagnosis of COPD and COVID on 12/23/2022 who presents to the ED with?increasing SOB. Pt will be admitted to the hospital for acute hypoxic respiratory failure in the setting of COPD exacerbation likely secondary to viral pneumonia. 1.Acute hypoxic respiratory failure/acute COPD exacerbation -pulse dose methylprednisolone -DuoNebs q.4 hours while awake -titrate O2 to maintain sats greater than equal 90%... Concurrently room air 2.Elevated troponins -Initial troponin 27.0 with repeat flat at 28.7 -EKG without significant ischemic changes -likely type 2 in the setting of demand ischemia, hypoxia 3.Trsaminitis -resolving -follow clinically 4.Non insulin-dependent type 2 diabetes mellitus -poor control secondary to steroid -lispro correctional scales -increase Lantus to 20 units b.i.d. -adjust as indicated 5.CAD/HLD -continue aspirin -will hold statin for now; resume when clinically appropriate 6.HTN -acceptable control on current therapies -adjust as indicated Full Code Lovenox Patient require ongoing hospitalization for supplemental O2 and IV methylprednisolone to treat COPD exacerbation Quality Stroke Does the patient have a stroke diagnosis?: No VTE Prior VTE?: No VTE Risk Level:: Medical - moderate - high VTE Device Contraindication: Treatment Not Indicated VTE Drug Contraindication: N/A - Med Ordered
[2023-01-22] MEDS: Insulin Glargine,Hum.rec.anlog 100 UNIT/ML 10 ML VIAL 20 UNIT SUBCUT (14:40)
[2023-01-22] MEDS: hydroCHLOROthiazide 25 MG TABLET PO (16:44)
[2023-01-22] MEDS: Gabapentin 600 MG TABLET PO (16:47)
[2023-01-22 17:02] LABS: Glucose, Whole Blood 414 mg/dL (60-115)
[2023-01-22 20:29] LABS: Glucose, Whole Blood 384 mg/dL (60-115)
[2023-01-22] MEDS: Sennosides 8.6 MG TABLET 17.2 MG PO (20:59)
[2023-01-23 03:50] VITALS: BP 156/61; PULSE 101; RESP 20; TEMP 36.2; O2SAT 95
[2023-01-23 06:14] LABS: MANUAL DIFF FLAG NO
[2023-01-23 06:21] LABS: Basophils Percent Auto 0.1 % (0-2); Hematocrit 38.3 % (37.0-47.0); Hemoglobin 12.2 g/dl (12.0-16.0); Imm Gran Abs Auto 0.13 X10*3/uL (0.00-0.03); Imm Gran Pct Auto 1.1 % (0.0-0.4); Lymphocytes Absolute Auto 1.2 X10*3/uL (1.2-4.9); Lymphocytes Percent Auto 10.5 % (20-40); Mean Corpuscular HGB Conc 31.9 g/dl (31.0-35.0); Mean Corpuscular Hemoglobin 29.3 pg (27.0-33.0); Mean Corpuscular Volume 92.1 fL (80.0-98.0); Mean Platelet Volume 11.4 fL (9.4-12.3); Monocytes Absolute Auto 0.8 X10*3/uL (0.1-1.2); Monocytes Percent Auto 6.5 % (2-11); Neutrophils Absolute Auto 9.4 x10*3/uL (2.0-8.3); Neutrophils Percent Auto 81.8 % (45-73); Platelet Count 218 X10*3/uL (160-400); Red Blood Count 4.16 X10*6/uL (4.20-5.50); White Blood Count 11.5 X10*3/uL (4.8-10.8)
[2023-01-23 06:37] LABS: Alanine Aminotransferase 49 U/L (0-31); Albumin Level 3.4 g/dL (3.5-5.0); Alkaline Phosphatase 99 U/L (39-117); Anion Gap 12 (12-20); Aspartate Amino Transferase 15 U/L (5-31); Bilirubin Total 0.5 mg/dL (0.0-1.0); Blood Urea Nitrogen 32 mg/dL (9-16); Calcium 9.3 mg/dL (8.4-10.2); Carbon Dioxide 27 mmol/L (22-29); Chloride 102 mmol/L (96-108); Creatinine Clr Calc Pharmacy 62.9; Estimated Glomerular Filt Rate 54; Potassium 4.3 mmol/L (3.3-5.1); Sodium 137 mmol/L (135-145); Total Protein 6.2 g/dL (6.5-8.0)
[2023-01-23 06:40] LABS: Glucose Random 360 mg/dL (60-115)
--- NOTE | 2023-01-23 07:20 | PC.NURSE ---
Received critical blood glucose level from lab at 0636 via [employer], which was reprted to Dr. Miranda at 0639; per Dr. Miranda, give according to sliding scale. Reprted to oncoming RNs in handover. To be given by oncoming RNs.
[2023-01-23 07:36] LABS: Glucose, Whole Blood 348 mg/dL (60-115)
[2023-01-23 07:39] VITALS: BP 140/96; PULSE 114; RESP 20; TEMP 36.8; O2SAT 97
[2023-01-23] MEDS: methylPREDNISolone Sod Succ 40 MG/ML VIAL IVPUSH (07:59)
[2023-01-23] MEDS: Furosemide 20 MG/2 ML VIAL IVPUSH (07:59)
[2023-01-23] MEDS: Aspirin Enteric Coated 81 MG TABLET.DR PO (07:59)
[2023-01-23] MEDS: dilTIAZem HCL CD 120 MG CAP.ER.DEG PO (07:59)
[2023-01-23] MEDS: 0.9 % Sodium Chloride Flush 3 ML SYRINGE IVFLUSH (08:00)
[2023-01-23] MEDS: Insulin Lispro 100 UNIT/ML 3 ML VIAL SUBCUT ×2 (08:00→11:46)
[2023-01-23] MEDS: Albuterol/Iprat 2.5/0.5MG 3 ML AMPUL.NEB INHALE ×2 (08:05→11:52)
[2023-01-23 08:06] VITALS: PULSE 101; RESP 16; O2SAT 97
[2023-01-23 11:20] LABS: Glucose, Whole Blood 380 mg/dL (60-115)
[2023-01-23 11:53] VITALS: PULSE 100; RESP 18; O2SAT 98
--- NOTE | 2023-01-23 12:30 | PM.DS ---
DS: Providers Provider Date of Service: 01/23/23 Date of admission: 01/20/23 16:10 Date of discharge: 01/23/23 Primary care physician: Shanita Hampton CNP DS: Diagnosis Discharge Diagnosis (1) COPD exacerbation: Status: Acute (2) Non-insulin dependent type 2 diabetes mellitus: Status: Acute (3) CAD (coronary artery disease): Status: Acute DS: Summary Hospital Course Hospital Course: Pt is a 67-year-old female with a PMH significant for HTN, HLD, CAD, left breast cancer 2004, xyo-[id number]-[id number] diabetes type 2,?and new diagnosis of COPD and COVID on 12/23/2022 who presents to the ED with?increasing SOB. Patient initially presented on 04/12/2022 to [facility] due to shortness of breath and difficulty breathing. Was diagnosed there with COPD based off of symptoms and imaging, and also tested positive for COVID. Patient has a history of smoking though quit 20 years ago. Was discharged home prednisone and albuterol inhaler. States inhaler did not help much with her breathing, but she did use her daughter's nebulizer to good effect. Discussed her diagnosis with PCP over the phone who prescribed her a home nebulizer though was unable to product picker last night. 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 Called EMS and was brought to the ED for further evaluation. Chronic cough around baseline but lately occasionally productive of whitish foam . GIVENS, especially with walking up the stairs, around baseline. Has had lower leg edema for the past few years. Denies chest pain/pressure, palpitations. No fever, chills, N/V. Denies abdominal pain. ER Course In the ED pt was afebrile but tachycardic up to 124, tachypneic 22, hypertensive to 166/102, and desatting as low as 77% on RA while ambulating. Labs were significant for lactic acid of 2.5, AST 61, ALT 100, alk-phos 131, and initial troponin 27.0 with repeat flat at 28.7. No leukocytosis. Negative for influenza type a and B, RSV, COVID. CXR showed bilateral air space opacities in lower lung zones compatible with pneumonia, though viral pneumonia including COVID and multifocal bronchopneumonia could also have this appearance. Suggest close follow-up imaging. EKG demonstrated sinus tachycardia of 121 with intraventricular conduction delay with occasional PVCs, and no evidence of significant ST elevations or depressions. Pt was treated with Mag sulfate, Solu-Medrol, DuoNebs, and ceftriaxone. Pt will be admitted to the hospital for acute hypoxic respiratory failure in the setting of COPD exacerbation likely secondary to viral pneumonia. Hospital Course Patient admitted to the telemetry floor where monitor failed to demonstrate any acute dysrhythmias. She was placed on pulse dose methylprednisolone supplemental O2 and DuoNebs. Over the next 72 hours, she improved and I have have no O2 requirement. At this point in time she is ambulating in the room without issue and requesting discharge. She is medically acceptable for the same. She will be discharged to complete a prednisone taper and follow-up with PCP Time Attestation Discharge coordination time: Greater than 30 minutes Quality: Safe Use of Opioids Does Pt have an Active Cancer Diagnosis on the Problem List?: No Quality: Stroke Does the patient have a stroke diagnosis?: No Physical Exam Vital Signs: Vital Signs: Last Vital Signs Temp 98.3 F 01/23/23 07:39 Pulse 100 01/23/23 11:53 Resp 18 01/23/23 11:53 BP 140/96 H 01/23/23 07:39 Pulse Ox 97 01/23/23 07:39 O2 Del Method Room Air 01/23/23 07:39 O2 Flow Rate 2 01/21/23 07:42 Oxygen Flow Rate 2 01/20/23 20:38 BMI result Body Mass Index 34.5 Const: Other: Awake alert oriented x3 no acute distress Resp: Other: Clear to auscultation with good aeration to bases. No wheezes appreciated Cardio: Other: No S4; positive S1-S2; no S3 murmurs rubs or gallops GI: Other: Soft nontender nondistended normoactive bowel sounds Neuro: Other: Cranial nerves 2-12 grossly intact as tested. Motor is 5/5 all extremities. Sensation intact. Cognition appropriate Extrem: Other: No edema bilaterally DS: Data Data Completed and Pending Labs on day of discharge: Laboratory Results - last 24 hr 01/22/23 01/22/23 01/23/23 16:10 20:21 05:53 WBC 11.5 H RBC 4.16 L Hgb 12.2 Hct 38.3 MCV 92.1 MCH 29.3 MCHC 31.9 RDW 14.0 Plt Count 218 MPV 11.4 Immature Gran % (Auto) 1.1 H Neut % (Auto) 81.8 H Lymph % (Auto) 10.5 L [place] % (Auto) 6.5 Eos % (Auto) 0.0 Baso % (Auto) 0.1 Lymph # (Auto) 1.2 [place] # (Auto) 0.8 Eos # (Auto) 0.0 Baso # (Auto) 0.0 Abs Immat Gran (auto) 0.13 H Absolute Neuts (auto) 9.4 H Absolute Nucleated RBC 0.000 Nucleated RBC % (auto) 0.0 Sodium 137 Potassium 4.3 Chloride 102 Carbon Dioxide 27 Anion Gap 12 BUN 32 H Creatinine 1.01 Estim Creat Clear Calc 62.9 Estimated GFR 54 POC Glucose 414 H* 384 H* Random Glucose 360 H* Calcium 9.3 Total Bilirubin 0.5 AST 15 ALT 49 H Alkaline Phosphatase 99 Total Protein 6.2 L Albumin 3.4 L 01/23/23 01/23/23 07:22 11:13 WBC RBC Hgb Hct MCV MCH MCHC RDW Plt Count MPV Immature Gran % (Auto) Neut % (Auto) Lymph % (Auto) [place] % (Auto) Eos % (Auto) Baso % (Auto) Lymph # (Auto) [place] # (Auto) Eos # (Auto) Baso # (Auto) Abs Immat Gran (auto) Absolute Neuts (auto) Absolute Nucleated RBC Nucleated RBC % (auto) Sodium Potassium Chloride Carbon Dioxide Anion Gap BUN Creatinine Estim Creat Clear Calc Estimated GFR POC Glucose 348 H 380 H* Random Glucose Calcium Total Bilirubin AST ALT Alkaline Phosphatase Total Protein Albumin Preliminary micro results at discharge 01/20/23 12:44 Blood Culture - Preliminary Blood - Venous No growth after 48 hours. 01/20/23 12:44 Blood Culture - Preliminary Blood - Venous No growth after 48 hours. Discharge Plan Discharge Anticipated Discharge Date/Time: 01/23/23 12:24 Patient Disposition: Home Health Service Discharge Diagnosis: COPD exacerbation Referrals: Shanita Hampton CNP [Primary Care Provider] - 1 Week Discharge Medications: New ipratropium-albuterol 0.5 mg-3 mg(2.5 mg base)/3 mL Solution For Nebulization 3 ml inhalation RQ4H WHILE AWAKE Qty: 270 0RF prednisone 20 mg tablet See Rx Instructions .Route .COMPLEX Qty: 18 0RF Rx Instructions: 20 mg orally; 3 tabs daily for 3 days, 2 tabs daily for 3 days, 1 tab daily for 3 days Continued gabapentin 600 mg tablet 600 mg PO TID PRN (Reason: Pain) diltiazem HCl 120 mg capsule,extended release 24hr 120 mg PO DAILY hydrochlorothiazide 25 mg tablet 25 mg PO Q48H albuterol sulfate [Ventolin HFA] 90 mcg/actuation HFA aerosol inhaler 1 puff INHALATION Q4H PRN (Reason: dyspnea) rosuvastatin 10 mg tablet 10 mg PO DAILY Farxiga 5 mg tablet 5 mg PO DAILY Trulicity 1.5 mg/0.5 mL pen injector 1.5 mg subcut QWEEK aspirin 81 mg Tablet,Delayed Release (Dr/Ec) 81 mg PO DAILY Discontinued prednisone 20 mg tablet 40 mg PO DAILY Discharge Orders: Discharge Order (Routine); Ordered 01/23/23 Ordered By: Jose Roman Diet: Advance to usual diet Activity on Discharge: As tolerated Stand Alone Forms: Patient Portal Discharge page Care Plan Goals: Resume all your medicines as taken before the hospital Health Concerns: Complete prednisone taper as outlined Plan of Treatment: Follow-up with your PCP in 2 weeks Assessment: See discharge summary
--- NOTE | 2023-01-23 12:33 | P.F2F_ITS ---
Service Date Service Date: 01/23/23 Encounter Date of encounter: 01/23/23 Reasons for Services Signs and symptoms assessed: Respiratory status with oxygen saturation Reason for senior living: diabetic teaching, medication management and teach disease management Homebound: Leaving the home is medically contraindicated at this time without the asist of a device and/or another person due th the listed conditions above and below. Reason homebound: unsteady gait / fall risk and leg weakness Certification: Based on the above findings, I certify that this patient is confined to the home and needs intermittent senior living care, physical therapy and/or speech th erapy, or continues to need occupational therapy. The patient is under my care, and I have initiated the establishment of the plan of care. The patient will be followed by a physician who will periodically review the plan of care. Time Spent With Patient Time: Total time managing care of this patient today ____ minutes.
--- NOTE | 2023-01-23 12:36 | MHC.CM.PN ---
Patient has been medically cleared for dc to home today with services. A referral has been made to [facility], who is aware of today's dc. Last IMM addressed on 01/21/2023.
== END 2023-01-23 15:52 | disposition home or self-care (01) | DRG 193 ==
LOC: HO.ED 13:02 → HO.EDOVER 16:25 → HO.IMC 20:23
PROVIDERS: Physician Assistant Medical; Admitting Provider Student in an Organized Health Care Education/Training Program; Emergency Provider Emergency Medicine Emergency Medical Services; PCP Nurse Practitioner Family; Visit Provider Hospitalist
DX: J12.9 Viral pneumonia, unspecified (principal); J96.01 Acute respiratory failure with hypoxia; J44.0 Chronic obstructive pulmonary disease with (acute) lower respiratory infection; E87.20 Acidosis, unspecified; J44.1 Chronic obstructive pulmonary disease with (acute) exacerbation; E78.5 Hyperlipidemia, unspecified; I25.10 Atherosclerotic heart disease of native coronary artery without angina pectoris; E11.9 Type 2 diabetes mellitus without complications; I10 Essential (primary) hypertension; Z20.822 Contact with and (suspected) exposure to COVID-19; Z91.040 Latex allergy status; Z79.82 Long term (current) use of aspirin; Z79.85 Long-term (current) use of injectable non-insulin antidiabetic drugs; Z79.899 Other long term (current) drug therapy
CPT/HCPCS: 0241U; 36415; 71045; 80053; 82947; 83605; 83880; 84145; 84484; 85025; 85027; 87040; 93005; 93306; 94640; 99285; J0456; J0696; J1940; J2920; J2930; J3475; Q9957

== ENCOUNTER 2023-01-20 16:10 | Outpatient (BNV) | payer MEDICARE, MEDICAID, SELFPAY | END 2023-01-21 07:00 | PROVIDERS: Admitting Provider Student in an Organized Health Care Education/Training Program; Emergency Provider Emergency Medicine Emergency Medical Services; PCP Nurse Practitioner Family; Visit Provider Internal Medicine Cardiovascular Disease | DX: I34.0 Nonrheumatic mitral (valve) insufficiency (principal); I34.81 Nonrheumatic mitral (valve) annulus calcification | CPT/HCPCS: 93306 ==

== ENCOUNTER → 2023-01-20 16:10 | Outpatient (BNV) | payer MEDICARE, MEDICAID, SELFPAY | PROVIDERS: Admitting Provider Student in an Organized Health Care Education/Training Program; Emergency Provider Emergency Medicine Emergency Medical Services; PCP Nurse Practitioner Family; Visit Provider Student in an Organized Health Care Education/Training Program | DX: J44.1 Chronic obstructive pulmonary disease with (acute) exacerbation (principal); E11.9 Type 2 diabetes mellitus without complications; I25.10 Atherosclerotic heart disease of native coronary artery without angina pectoris | CPT/HCPCS: 99223; 99233; 99239; G0180 ==